=== PATIENT | female | born 1975 | race American Indian/Alaskan Native ===

== ENCOUNTER 2017-11-23 11:48 | Outpatient (CLI) | payer OTHER ==
[2017-11-23] MEDS ORDERED: PROVENTIL IH ONE (12:37)
== END 2017-11-23 11:49 | disposition home or self-care (01) ==
LOC: PF 11:48
PROVIDERS: ATTEND Internal Medicine
DX: J45.909 Unspecified asthma, uncomplicated (principal); E11.9 Type 2 diabetes mellitus without complications; G47.30 Sleep apnea, unspecified; I10 Essential (primary) hypertension; E66.9 Obesity, unspecified; E78.00 Pure hypercholesterolemia, unspecified; J34.9 Unspecified disorder of nose and nasal sinuses; M19.90 Unspecified osteoarthritis, unspecified site
CPT/HCPCS: 94060; 94640

== ENCOUNTER 2018-01-24 08:48 | Outpatient (CLI) | payer OTHER ==
--- NOTE | 2018-01-25 03:37 | XRay Report ---
FINAL REPORT EXAM: XR KNEE BILAT 4+V HISTORY: BILATERAL KNEE PAIN TECHNIQUE: Four views of bilateral knees, 8 views total PRIORS: None. FINDINGS: Right: The bones are normally aligned and mineralized. There is mild osteophyte formation on the posterior patella. There is mild narrowing of the medial joint with associated osteophyte formation. There is no evidence of acute fracture. The soft tissues are unremarkable. Left: The bones are normally aligned and mineralized. There is mild medial and lateral osteophyte formation and mild narrowing of the medial joint. There is posterior patellar osteophyte formation. There is no evidence of acute fracture. The soft tissues are unremarkable. IMPRESSION: Tricompartmental osteoarthrosis of the bilateral knees
== END 2018-01-24 08:49 | disposition home or self-care (01) ==
LOC: XRAY 08:48
PROVIDERS: ATTEND Orthopaedic Surgery
DX: M17.0 Bilateral primary osteoarthritis of knee (principal); I10 Essential (primary) hypertension; J45.909 Unspecified asthma, uncomplicated